=== PATIENT | male | born 1940 | race Caucasian/White ===

== ENCOUNTER 2016-07-20 11:53 | Emergency (ER) | payer MEDICARE, MEDICAID ==
[~2016-07-20] VITALS: Ht 175.3 cm; Wt 90.0 kg
[~2016-07-20 11:53] MED LIST: ACET1TAB12 PO; AMLO2.5T45 PO; ASPI-1035 PO; FINA5TAB11 PO; IBUP-1510 PO; LOSA50TA20 PO; METF500T4 PO; METO50TA5 PO; OMEP20TA80 PO; ROSU20TA PO; TERA2CAP53 PO
[2016-07-20 12:39] LABS: BASOPHILS % 0.5 % (0.0-2.0); HEMOGLOBIN. 11.4 g/dL (14.0-18.0); LYMPHOCYTES % 26.8 % (20.0-50.0); MEAN CORPUSCULAR HEMOGLOBIN 29.1 pg (28.0-32.0); MEAN CORPUSCULAR HGB CONC 33.6 g/dL (31.0-37.0); MEAN CORPUSCULAR VOLUME 86.7 fL (80.0-94.0); MEAN PLATELET VOLUME 8.1 fl (7.4-10.4); NEUTROPHILS % 62.7 % (40.0-76.0); PLATELET 156 x1000/uL (130-400); RED BLOOD CELL COUNT 3.92 mill/uL (4.7-6.1); RED CELL DISTRIBUTION WIDTH 14.8 % (11.6-14.6)
[2016-07-20 12:46] LABS: INR 1.2; PROTHROMBIN TIME 12.1 sec
[2016-07-20 12:49] LABS: ALBUMIN 3.6 g/dL (3.4-5.0); ANION GAP 15; CALCIUM 8.3 mg/dL (8.5-10.1); CARBON DIOXIDE 28 mEq/L (21-32); CHLORIDE 100 mEq/L (98-107); INDEX HEMOLYSI 1 (1-3); INDEX ICTERIC 1 (1-4); INDEX LIPEMIC 1 (1-3); UREA NITROGEN BLOOD 10 mg/dL (7-21)
[2016-07-20 12:53] LABS: ALANINE AMINOTRANSFERASE 25 IU/L (13-61); eGFR > 60 mL/min (>60)
[2016-07-20 15:49] VITALS: BP 125/70
== END 2016-07-20 16:01 | disposition home or self-care (01) ==
LOC: ER 12:12
DX: I95.9 Hypotension, unspecified (principal); R42 Dizziness and giddiness; E11.9 Type 2 diabetes mellitus without complications; R79.1 Abnormal coagulation profile; I10 Essential (primary) hypertension; Z95.0 Presence of cardiac pacemaker; Z79.82 Long term (current) use of aspirin
CPT/HCPCS: 36415; 71010; 80053; 85025; 85610; 93005; 99285

== ENCOUNTER 2018-11-26 23:08 | Inpatient (IN) | payer OTHER, MEDICAID ==
[~2018-11-26] VITALS: Ht 165.1 cm; Wt 79.5 kg
[~2018-11-26 23:08] MED LIST changes: -ASPI-1035 PO; +ASPI-1393 PO; -IBUP-1510 PO; +IBUP-2030 PO; -LOSA50TA20 PO; +LOSA50TA41 PO; +METF-414 PO; -METF500T4 PO; +METO-539 PO; -METO50TA5 PO; +OMEP20TA2 PO; -OMEP20TA80 PO; -ROSU20TA PO; +ROSU20TA2 PO; +TERA2CAP4 PO; -TERA2CAP53 PO
[2018-11-26] MEDS ORDERED: KETOROLAC 30MG/ML VIAL IV STA (23:24)
[2018-11-26 23:48] LABS: BASOPHILS % 0.7 % (0.0-2.0); EOSINOPHILS % 1.7 % (0.0-5.0); HEMATOCRIT. 35.6 % (42.0-52.0); HEMOGLOBIN. 12.2 g/dL (14.0-18.0); LYMPHOCYTES % 22.4 % (20.0-50.0); MEAN CORPUSCULAR HEMOGLOBIN 29.6 pg (28.0-32.0); MEAN CORPUSCULAR VOLUME 86.3 fL (80.0-94.0); MEAN PLATELET VOLUME 8.5 fl (7.4-10.4); MONOCYTES % 8.2 % (2.0-8.0); PLATELET 172 x1000/uL (130-400); RED BLOOD CELL COUNT 4.12 mill/uL (4.7-6.1); RED CELL DISTRIBUTION WIDTH 16.7 % (11.6-14.6)
[2018-11-26 23:49] LABS: CHLORIDE 93 mEq/L (98-107)
[2018-11-27 00:16] LABS: CLARITY URINE CLEAR (CLEAR); COLOR URINE YELLOW (YELLOW); KETONES URINE NEGATIVE (NEGATIVE); LEUKOCYTE ESTERASE URINE NEGATIVE (NEGATIVE); NITRITE URINE NEGATIVE (NEGATIVE); OCCULT BLOOD URINE TRACE (NEGATIVE); PROTEIN URINE NEGATIVE (NEGATIVE); SPECIFIC GRAVITY URINE 1.015 (1.005-1.030); UROBILINOGEN URINE 0.2 E.U./dL (0.2-1.0)
[2018-11-27] MEDS ORDERED: MORPHINE SULFATE 2 MG/ML CPJ (NOT FOR IM USE) IV ONE (06:15)
[2018-11-27 08:15] VITALS: BP 150/82
[2018-11-27 08:16] VITALS: BP 150/72
[2018-11-27] MEDS ORDERED: MORPHINE SULFATE 2 MG/ML CPJ (NOT FOR IM USE) IV PRN (10:00)
[2018-11-27] MEDS ORDERED: KETOROLAC 30MG/ML VIAL IV PRN (10:00)
[2018-11-27] MEDS ORDERED: ACETAMINOPHEN 325MG TABLET PO PRN (10:00)
[2018-11-27] MEDS ORDERED: ONDANSETRON HCL 4MG/2ML INJ IV PRN (10:00)
[2018-11-27] MEDS ORDERED: LACTULOSE 20G/30ML UDC PO PRN (10:00)
[2018-11-27] MEDS ORDERED: DEXTROSE 50% WATER 50ML SYRINGE IV PRN (10:45)
[2018-11-27] MEDS: DOCUSATE SODIUM 250MG CAPSULE PO SCH (10:58)
[2018-11-27] MEDS: TAMSULOSIN HCL 0.4MG SR CAPSULE PO SCH (10:58)
[2018-11-27 12:00] VITALS: BP 123/84
[2018-11-27] MEDS ORDERED: SORBITOL 70% SOLN 30ML PO NR (12:00)
[2018-11-27] MEDS: BLOOD SUGAR DIAGNOSTIC STRIP TEST SCH ×3 (12:05→20:25)
[2018-11-27] MEDS: INSULIN LISPRO 100 UNITS/ML SUBCUT SCH ×3 (12:07→21:00)
[2018-11-27 16:00] VITALS: BP 109/58
[2018-11-27] MEDS: FINASTERIDE 5MG TABLET PO SCH (17:32)
[2018-11-27 20:00] VITALS: BP 111/63
[2018-11-27 22:49] LABS: HEPATITIS B SURFACE ANTIGEN NEGATIVE
[2018-11-27 23:17] LABS: HEPATITIS A AB IGM NEGATIVE (NEGATIVE)
[2018-11-28] VITALS: BP 98/54
[2018-11-28 04:00] VITALS: BP 94/58
[2018-11-28 06:04] LABS: CHLORIDE 100 mEq/L (98-107)
[2018-11-28] MEDS: BLOOD SUGAR DIAGNOSTIC STRIP TEST SCH ×3 (06:13→17:20)
[2018-11-28 06:47] LABS: BASOPHILS % 0.7 % (0.0-2.0); EOSINOPHILS % 4.1 % (0.0-5.0); HEMATOCRIT. 34.1 % (42.0-52.0); HEMOGLOBIN. 11.9 g/dL (14.0-18.0); LYMPHOCYTES % 39.1 % (20.0-50.0); MEAN CORPUSCULAR HEMOGLOBIN 30.3 pg (28.0-32.0); MEAN CORPUSCULAR VOLUME 86.7 fL (80.0-94.0); MEAN PLATELET VOLUME 8.9 fl (7.4-10.4); MONOCYTES % 9.2 % (2.0-8.0); NEUTROPHILS % 46.9 % (40.0-76.0); PLATELET 168 x1000/uL (130-400); RED BLOOD CELL COUNT 3.93 mill/uL (4.7-6.1); RED CELL DISTRIBUTION WIDTH 16.7 % (11.6-14.6)
[2018-11-28] MEDS: INSULIN LISPRO 100 UNITS/ML SUBCUT SCH ×3 (07:50→17:39)
[2018-11-28 08:00] VITALS: BP 110/54
[2018-11-28] MEDS: TAMSULOSIN HCL 0.4MG SR CAPSULE PO SCH (08:45)
[2018-11-28] MEDS: FINASTERIDE 5MG TABLET PO SCH (08:45)
[2018-11-28] MEDS: DOCUSATE SODIUM 250MG CAPSULE PO SCH (08:46)
[2018-11-28] MEDS ORDERED: ENOXAPARIN 40MG/0.4ML SYR SUBCUT SCH (09:00)
[2018-11-28] MEDS ORDERED: ASPIRIN 81MG TABLET PO SCH (09:00)
[2018-11-28 12:00] VITALS: BP 101/56
[2018-11-28 16:00] VITALS: BP 105/64
[2018-11-28] MEDS ORDERED: ATORVASTATIN CALCIUM 40MG TABLET PO SCH (21:00)
== END 2018-11-28 18:16 | disposition home or self-care (01) | DRG 726 ==
LOC: ER 23:08 → 6WST 11-27 05:14 → EDBEDREQ 11-27 05:29 → EDBEDREQTM 11-27 05:29 → ENRESERV 11-27 07:20
PROVIDERS: ADMIT Internal Medicine; ATTEND Internal Medicine
DX: N40.1 Benign prostatic hyperplasia with lower urinary tract symptoms (principal); E87.1 Hypo-osmolality and hyponatremia; K59.00 Constipation, unspecified; D64.9 Anemia, unspecified; E11.9 Type 2 diabetes mellitus without complications; E66.9 Obesity, unspecified; E87.6 Hypokalemia; I11.0 Hypertensive heart disease with heart failure; I50.9 Heart failure, unspecified; K80.20 Calculus of gallbladder without cholecystitis without obstruction; K74.60 Unspecified cirrhosis of liver; R33.8 Other retention of urine; Z86.73 Personal history of transient ischemic attack (TIA), and cerebral infarction without residual deficits; Z95.0 Presence of cardiac pacemaker; Z79.1 Long term (current) use of non-steroidal anti-inflammatories (NSAID); Z79.899 Other long term (current) drug therapy; Z79.84 Long term (current) use of oral hypoglycemic drugs; Z68.29 Body mass index [BMI] 29.0-29.9, adult
CPT/HCPCS: 36415; 71045; 74176; 80048; 81003; 82962; 83880; 84484; 86705; 86709; 86803; 87340; 93005; 93306; 96374; 96375; 99285; J1650; J1885; J2270

== ENCOUNTER 2019-03-15 09:16 | Inpatient (IN) | payer OTHER, MEDICAID ==
[~2019-03-15] VITALS: Ht 165.1 cm; Wt 84.4 kg
[~2019-03-15 09:16] MED LIST changes: -AMLO2.5T45 PO; -METO-539 PO
[2019-03-15] MEDS ORDERED: SODIUM CHLORIDE 0.9% 500 ML IV ONE (10:05)
[2019-03-15 11:02] LABS: BASOPHILS % 0.9 % (0.0-2.0); EOSINOPHILS % 1.4 % (0.0-5.0); HEMATOCRIT. 39.9 % (42.0-52.0); HEMOGLOBIN. 13.5 g/dL (14.0-18.0); LYMPHOCYTES % 25.7 % (20.0-50.0); MEAN CORPUSCULAR HEMOGLOBIN 30.6 pg (28.0-32.0); MEAN CORPUSCULAR VOLUME 90.1 fL (80.0-94.0); MEAN PLATELET VOLUME 8.3 fl (7.4-10.4); MONOCYTES % 13.5 % (2.0-8.0); NEUTROPHILS % 58.5 % (40.0-76.0); PLATELET 160 x1000/uL (130-400); RED BLOOD CELL COUNT 4.42 mill/uL (4.7-6.1); RED CELL DISTRIBUTION WIDTH 14.9 % (11.6-14.6)
[2019-03-15 11:07] LABS: CHLORIDE 97 mEq/L (98-107)
[2019-03-15 11:23] LABS: CLARITY URINE CLEAR (CLEAR); COLOR URINE YELLOW (YELLOW); KETONES URINE NEGATIVE (NEGATIVE); LEUKOCYTE ESTERASE URINE NEGATIVE (NEGATIVE); NITRITE URINE NEGATIVE (NEGATIVE); OCCULT BLOOD URINE 1+ (NEGATIVE); PROTEIN URINE NEGATIVE (NEGATIVE); SPECIFIC GRAVITY URINE 1.012 (1.005-1.030); UROBILINOGEN URINE 0.2 E.U./dL (0.2-1.0)
[2019-03-15] MEDS ORDERED: ACETAMINOPHEN 325MG TABLET PO NR (13:30)
[2019-03-15] MEDS ORDERED: ONDANSETRON HCL 4MG/2ML INJ IV ONE (14:15)
[2019-03-15] MEDS ORDERED: ONDANSETRON HCL 4MG/2ML INJ IV PRN (16:30)
[2019-03-15] MEDS ORDERED: ACETAMINOPHEN 325MG TABLET PO PRN (16:30)
[2019-03-15] MEDS ORDERED: CLONIDINE 0.1MG TABLET PO PRN (16:30)
[2019-03-15] MEDS ORDERED: BISACODYL 5MG TABLET PO PRN (16:30)
[2019-03-15] MEDS ORDERED: PIPERACILLIN/TAZOBACTAM 3.375 G in DEXT 5% WATER 100 ML IV NR (17:00)
[2019-03-15] MEDS ORDERED: DEXTROSE 50% WATER 50ML SYRINGE IV PRN (17:00)
[2019-03-15 18:00] VITALS: BP 110/69
[2019-03-15] MEDS: BLOOD SUGAR DIAGNOSTIC STRIP TEST SCH ×2 (18:00→20:56)
[2019-03-15] MEDS: INSULIN LISPRO 100 UNITS/ML SUBCUT SCH ×2 (18:10→20:55)
[2019-03-15 20:00] VITALS: BP 107/50
[2019-03-15] MEDS: SODIUM CHLORIDE 0.9% 1,000 ML IV SCH (20:08)
[2019-03-15] MEDS: AMLODIPINE 5MG TABLET PO SCH (20:55)
[2019-03-15] MEDS: PIPERACILLIN/TAZOBACTAM 3.375 G in DEXT 5% WATER 100 ML IV SCH (23:55)
[2019-03-16] VITALS: BP_SYST 87; BP_SYST 92; BP_SYST 93; BP_DIAS 45; BP_DIAS 46
[2019-03-16 04:00] VITALS: BP 117/64
[2019-03-16 08:00] VITALS: BP_SYST 102; BP_SYST 112; BP_SYST 120; BP_DIAS 55; BP_DIAS 63
[2019-03-16 08:07] LABS: BASOPHILS % 0.3 % (0.0-2.0); EOSINOPHILS % 0.2 % (0.0-5.0); HEMATOCRIT. 35.3 % (42.0-52.0); LYMPHOCYTES % 26.9 % (20.0-50.0); MEAN CORPUSCULAR HEMOGLOBIN 30.6 pg (28.0-32.0); MEAN CORPUSCULAR VOLUME 89.8 fL (80.0-94.0); MEAN PLATELET VOLUME 8.9 fl (7.4-10.4); MONOCYTES % 8.5 % (2.0-8.0); NEUTROPHILS % 64.1 % (40.0-76.0); PLATELET 141 x1000/uL (130-400); RED BLOOD CELL COUNT 3.93 mill/uL (4.7-6.1); RED CELL DISTRIBUTION WIDTH 14.6 % (11.6-14.6)
[2019-03-16] MEDS: PIPERACILLIN/TAZOBACTAM 3.375 G in DEXT 5% WATER 100 ML IV SCH ×4 (08:13→23:24)
[2019-03-16] MEDS: DOCUSATE SODIUM 250MG CAPSULE PO SCH (08:14)
[2019-03-16] MEDS: TAMSULOSIN HCL 0.4MG SR CAPSULE PO SCH (08:14)
[2019-03-16] MEDS: AMLODIPINE 5MG TABLET PO SCH (08:14)
[2019-03-16 08:53] LABS: CHLORIDE 98 mEq/L (98-107)
[2019-03-16] MEDS: SODIUM CHLORIDE 0.9% 1,000 ML IV SCH ×2 (11:50→23:33)
[2019-03-16 12:00] VITALS: BP_SYST 106; BP_SYST 115; BP_SYST 126; BP_DIAS 55; BP_DIAS 56; BP_DIAS 63
[2019-03-16] MEDS: BLOOD SUGAR DIAGNOSTIC STRIP TEST SCH ×4 (12:40→21:00)
[2019-03-16] MEDS: INSULIN LISPRO 100 UNITS/ML SUBCUT SCH ×4 (13:00→21:00)
[2019-03-16 16:00] VITALS: BP_SYST 102; BP_SYST 123; BP_DIAS 52; BP_DIAS 55; BP_DIAS 63
[2019-03-16 20:00] VITALS: BP_SYST 107; BP_SYST 96; BP_DIAS 42; BP_DIAS 43
[2019-03-17] VITALS: BP 106/41
[2019-03-17 04:00] VITALS: BP 99/51
[2019-03-17] MEDS: PIPERACILLIN/TAZOBACTAM 3.375 G in DEXT 5% WATER 100 ML IV SCH ×2 (05:05→11:58)
[2019-03-17 06:15] LABS: BASOPHILS % 0.4 % (0.0-2.0); EOSINOPHILS % 0.6 % (0.0-5.0); HEMATOCRIT. 33.5 % (42.0-52.0); HEMOGLOBIN. 11.9 g/dL (14.0-18.0); MEAN CORPUSCULAR HEMOGLOBIN 31.5 pg (28.0-32.0); MEAN CORPUSCULAR VOLUME 88.7 fL (80.0-94.0); MEAN PLATELET VOLUME 8.7 fl (7.4-10.4); PLATELET 128 x1000/uL (130-400); RED BLOOD CELL COUNT 3.78 mill/uL (4.7-6.1); RED CELL DISTRIBUTION WIDTH 14.7 % (11.6-14.6)
[2019-03-17 06:43] LABS: CHLORIDE 105 mEq/L (98-107)
[2019-03-17] MEDS: INSULIN LISPRO 100 UNITS/ML SUBCUT SCH ×2 (07:31→13:10)
[2019-03-17] MEDS: BLOOD SUGAR DIAGNOSTIC STRIP TEST SCH ×2 (07:31→12:40)
[2019-03-17 08:00] VITALS: BP 104/58
[2019-03-17] MEDS: DOCUSATE SODIUM 250MG CAPSULE PO SCH (10:17)
[2019-03-17] MEDS: TAMSULOSIN HCL 0.4MG SR CAPSULE PO SCH (10:18)
[2019-03-17] MEDS: SODIUM CHLORIDE 0.9% 1,000 ML IV SCH (10:38)
[2019-03-17 15:48] VITALS: BP 129/68
[2019-03-18] MEDS ORDERED: ENOXAPARIN 40MG/0.4ML SYR SUBCUT SCH (09:00)
== END 2019-03-17 17:33 | disposition home or self-care (01) | DRG 872 ==
LOC: ER 09:16 → 7WST 14:25 → EDBEDREQ 14:28 → EDBEDREQTM 14:28 → ENRESERV 16:49
PROVIDERS: ADMIT Internal Medicine; ATTEND Internal Medicine
DX: A41.9 Sepsis, unspecified organism (principal); I50.32 Chronic diastolic (congestive) heart failure; E87.1 Hypo-osmolality and hyponatremia; E11.9 Type 2 diabetes mellitus without complications; D64.9 Anemia, unspecified; G90.8 Other disorders of autonomic nervous system; K74.60 Unspecified cirrhosis of liver; I11.0 Hypertensive heart disease with heart failure; E87.8 Other disorders of electrolyte and fluid balance, not elsewhere classified; N40.0 Benign prostatic hyperplasia without lower urinary tract symptoms; B34.9 Viral infection, unspecified; Z86.73 Personal history of transient ischemic attack (TIA), and cerebral infarction without residual deficits; Z95.0 Presence of cardiac pacemaker; Z79.899 Other long term (current) drug therapy; Z79.82 Long term (current) use of aspirin; Z79.84 Long term (current) use of oral hypoglycemic drugs
CPT/HCPCS: 36415; 71045; 80048; 81003; 82962; 83880; 84145; 84484; 87804; 93005; 96361; 96365; 96375; 97162; 99285; J2405; J2543; J7030; J7060

== ENCOUNTER 2022-03-16 16:00 | Inpatient (IN) | payer OTHER, MEDICAID ==
[~2022-03-16] VITALS: Ht 172.7 cm; Wt 84.8 kg
[~2022-03-16 16:00] MED LIST changes: -ASPI-1393 PO; +ASPI-1497 PO; -LOSA50TA41 PO; -OMEP20TA2 PO; +OMEP20TA23 PO
[2022-03-16] MEDS ORDERED: SODIUM CHLORIDE 0.9% 1,000 ML IV ONE (16:45)
[2022-03-16 18:13] LABS: BASOPHILS % 0.5 % (0.0-2.0); EOSINOPHILS % 2.1 % (0.0-5.0); HEMATOCRIT. 35.2 % (42.0-52.0); HEMOGLOBIN. 11.8 g/dL (14.0-18.0); LYMPHOCYTES % 29.1 % (20.0-50.0); MEAN CORPUSCULAR HEMOGLOBIN 29.8 pg (28.0-32.0); MEAN CORPUSCULAR VOLUME 88.9 fL (80.0-94.0); MEAN PLATELET VOLUME 8.7 fl (7.4-10.4); NEUTROPHILS % 58.3 % (40.0-76.0); PLATELET 184 x1000/uL (130-400); RED BLOOD CELL COUNT 3.96 mill/uL (4.7-6.1); RED CELL DISTRIBUTION WIDTH 14.1 % (11.6-14.6)
[2022-03-16 18:16] LABS: CHLORIDE 102 mEq/L (98-107)
[2022-03-16 18:20] LABS: INR 1.1; PARTIAL THROMBOPLASTIN TIME 30.3 sec (23.4-31.0); PROTHROMBIN TIME 11.7 sec (9.6-11.0)
[2022-03-16] MEDS ORDERED: SODIUM CHLORIDE 0.9% 1000ML BAG (SEPSIS BOLUS) IV ONE (18:30)
[2022-03-16] MEDS ORDERED: CEFTRIAXONE 1 G PREMIX 50 ML IV ONE (18:30)
[2022-03-16] MEDS ORDERED: AZITHROMYCIN 500MG/250ML 250 ML IV ONE (18:30)
[2022-03-16] MEDS ORDERED: OSELTAMIVIR 75MG CAPSULE PO ONE (18:45)
[2022-03-16 19:21] LABS: CLARITY URINE CLEAR (CLEAR); COLOR URINE YELLOW (YELLOW); KETONES URINE NEGATIVE (NEGATIVE); LEUKOCYTE ESTERASE URINE NEGATIVE (NEGATIVE); NITRITE URINE NEGATIVE (NEGATIVE); OCCULT BLOOD URINE NEGATIVE (NEGATIVE); PH URINE 6.5 (4.5-8.0); PROTEIN URINE NEGATIVE (NEGATIVE); SPECIFIC GRAVITY URINE 1.007 (1.005-1.030); UROBILINOGEN URINE 0.2 E.U./dL (0.2-1.0)
[2022-03-16] MEDS ORDERED: FUROSEMIDE 20MG/2ML VIAL IVP ONE (19:30)
[2022-03-16] MEDS ORDERED: ASPIRIN 81MG TABLET PO ONE (19:30)
[2022-03-16 23:30] VITALS: BP 158/74
[2022-03-16] MEDS ORDERED: CLONIDINE 0.1MG TABLET PO PRN (23:30)
[2022-03-16] MEDS ORDERED: IPRATROPIUM/ALBUTEROL 0.5-3(2.5)MG/3ML NEB NEB PRN (23:30)
[2022-03-16] MEDS ORDERED: HYDROCODONE/ACETAMINOPHEN 5/325MG TABLET PO PRN (23:30)
[2022-03-16] MEDS ORDERED: ACETAMINOPHEN 325MG TABLET PO PRN (23:30)
[2022-03-16] MEDS ORDERED: ONDANSETRON HCL 4MG/2ML INJ IV PRN (23:30)
[2022-03-16] MEDS ORDERED: DOCUSATE SODIUM 100MG CAPSULE PO PRN (23:30)
[2022-03-16] MEDS ORDERED: MAGNESIUM/ALUMINUM HYDROXIDE/SIMETHICONE 30ML UDC PO PRN (23:30)
[2022-03-17] MEDS ORDERED: DEXTROSE 50% WATER 50ML SYRINGE IV PRN (00:15)
[2022-03-17] MEDS ORDERED: SERT25TA PO (01:09)
[2022-03-17] MEDS ORDERED: LINA145C PO (01:09)
[2022-03-17] MEDS ORDERED: AMLO2.5T45 PO (01:09)
[2022-03-17] MEDS ORDERED: TAMS-11 PO (01:09)
[2022-03-17] MEDS ORDERED: LOSA25TA26 PO (01:09)
[2022-03-17] MEDS ORDERED: *PATIENT'S OWN MEDICATION STORAGE XX SCH (01:30)
[2022-03-17 01:55] LABS: *AMPHETAMINES SCREEN URINE NEGATIVE (NEGATIVE); *BARBITURATES SCREEN URINE NEGATIVE (NEGATIVE); *BENZODIAZEPINES SCREEN URINE NEGATIVE (NEGATIVE); *COCAINE SCREEN URINE NEGATIVE (NEGATIVE); CANNABINOID URINE SCREEN NEGATIVE (NEGATIVE); METHADONE URINE SCREEN NEGATIVE (NEGATIVE); OPIATES URINE SCREEN NEGATIVE (NEGATIVE); PHENCYCLIDINE URINE SCREEN NEGATIVE (NEGATIVE)
[2022-03-17 04:00] VITALS: BP 151/70
[2022-03-17] MEDS: BLOOD SUGAR DIAGNOSTIC STRIP TEST SCH ×4 (06:17→20:32)
[2022-03-17] MEDS: INSULIN LISPRO 100 UNITS/ML SUBCUT SCH ×4 (06:18→20:32)
[2022-03-17 07:14] LABS: BASOPHILS % 0.6 % (0.0-2.0); EOSINOPHILS % 2.7 % (0.0-5.0); HEMATOCRIT. 34.5 % (42.0-52.0); HEMOGLOBIN. 11.6 g/dL (14.0-18.0); LYMPHOCYTES % 31.8 % (20.0-50.0); MEAN CORPUSCULAR HEMOGLOBIN 29.4 pg (28.0-32.0); MEAN CORPUSCULAR VOLUME 87.6 fL (80.0-94.0); MONOCYTES % 10.2 % (2.0-8.0); NEUTROPHILS % 54.7 % (40.0-76.0); PLATELET 196 x1000/uL (130-400); RED BLOOD CELL COUNT 3.94 mill/uL (4.7-6.1)
[2022-03-17 07:56] LABS: CREATINE KINASE 75 IU/L (39-308); CREATINE KINASE MB FRACTION < 1.0 ng/mL (0.5-3.6)
[2022-03-17 08:23] VITALS: BP 139/67
[2022-03-17] MEDS: ASPIRIN 81MG EC TABLET PO SCH (09:03)
[2022-03-17 10:04] LABS: CHLORIDE 103 mEq/L (98-107)
[2022-03-17 10:27] LABS: HDL CHOLESTEROL 32 mg/dL (40-59); LDL CHOLESTEROL 62 mg/dL (5-100)
[2022-03-17 12:04] VITALS: BP 119/65
[2022-03-17 12:05] VITALS: BP_SYST 130; BP_SYST 132; BP_DIAS 68; BP_DIAS 75
[2022-03-17 16:40] VITALS: BP 159/70
[2022-03-17] MEDS ORDERED: NALOXONE HCL 0.4MG/ML VIAL IV PRN (18:00)
[2022-03-17 18:16] LABS: CREATINE KINASE 67 IU/L (39-308); CREATINE KINASE MB FRACTION < 1.0 ng/mL (0.5-3.6)
[2022-03-17 20:00] VITALS: BP 139/69
[2022-03-18 04:00] VITALS: BP 143/69
[2022-03-18 06:31] LABS: BASOPHILS % 0.5 % (0.0-2.0); EOSINOPHILS % 3.5 % (0.0-5.0); HEMATOCRIT. 32.6 % (42.0-52.0); HEMOGLOBIN. 11.2 g/dL (14.0-18.0); LYMPHOCYTES % 44.2 % (20.0-50.0); MEAN CORPUSCULAR HEMOGLOBIN 30.1 pg (28.0-32.0); MEAN CORPUSCULAR VOLUME 87.7 fL (80.0-94.0); MEAN PLATELET VOLUME 8.8 fl (7.4-10.4); MONOCYTES % 10.2 % (2.0-8.0); NEUTROPHILS % 41.6 % (40.0-76.0); PLATELET 179 x1000/uL (130-400); RED BLOOD CELL COUNT 3.72 mill/uL (4.7-6.1)
[2022-03-18] MEDS: INSULIN LISPRO 100 UNITS/ML SUBCUT SCH ×4 (06:33→21:44)
[2022-03-18] MEDS: BLOOD SUGAR DIAGNOSTIC STRIP TEST SCH ×4 (06:33→21:44)
[2022-03-18 07:16] LABS: CHLORIDE 101 mEq/L (98-107)
[2022-03-18 08:00] VITALS: BP 158/72
[2022-03-18] MEDS: ASPIRIN 81MG EC TABLET PO SCH (09:16)
[2022-03-18] MEDS: LOSARTAN POTASSIUM 25 MG TABLET PO SCH (09:45)
[2022-03-18] MEDS: AMLODIPINE 2.5MG TABLET PO SCH (09:45)
[2022-03-18 12:00] VITALS: BP 109/67
[2022-03-18 16:00] VITALS: BP 119/54
[2022-03-18 20:01] VITALS: BP 135/57
[2022-03-18] MEDS ORDERED: ATORVASTATIN CALCIUM 10MG TABLET PO SCH (21:00)
[2022-03-19 00:07] VITALS: BP 128/57
[2022-03-19 04:05] VITALS: BP 125/59
[2022-03-19] MEDS: BLOOD SUGAR DIAGNOSTIC STRIP TEST SCH ×2 (06:31→12:48)
[2022-03-19] MEDS: INSULIN LISPRO 100 UNITS/ML SUBCUT SCH ×2 (06:31→12:40)
[2022-03-19 07:29] LABS: BASOPHILS % 0.8 % (0.0-2.0); EOSINOPHILS % 3.9 % (0.0-5.0); HEMATOCRIT. 34.6 % (42.0-52.0); HEMOGLOBIN. 11.6 g/dL (14.0-18.0); LYMPHOCYTES % 38.2 % (20.0-50.0); MEAN CORPUSCULAR HEMOGLOBIN 29.7 pg (28.0-32.0); MEAN CORPUSCULAR VOLUME 88.4 fL (80.0-94.0); MEAN PLATELET VOLUME 8.5 fl (7.4-10.4); MONOCYTES % 9.5 % (2.0-8.0); NEUTROPHILS % 47.6 % (40.0-76.0); PLATELET 187 x1000/uL (130-400); RED BLOOD CELL COUNT 3.91 mill/uL (4.7-6.1); RED CELL DISTRIBUTION WIDTH 14.6 % (11.6-14.6)
[2022-03-19 07:55] LABS: CHLORIDE 104 mEq/L (98-107)
[2022-03-19 08:00] VITALS: BP 146/64
[2022-03-19] MEDS: LOSARTAN POTASSIUM 25 MG TABLET PO SCH (09:09)
[2022-03-19] MEDS: ASPIRIN 81MG EC TABLET PO SCH (09:09)
[2022-03-19] MEDS: AMLODIPINE 2.5MG TABLET PO SCH (09:10)
[2022-03-19 12:00] VITALS: BP 145/109
[2022-03-19 15:22] VITALS: BP 145/109
== END 2022-03-19 18:41 | disposition home or self-care (01) | DRG 74 ==
LOC: ER 16:00 → 8WST 19:34 → ENRESERV 23:03
PROVIDERS: ADMIT Internal Medicine; ATTEND Internal Medicine
DX: G90.8 Other disorders of autonomic nervous system (principal); I11.0 Hypertensive heart disease with heart failure; I50.9 Heart failure, unspecified; K74.60 Unspecified cirrhosis of liver; Z20.822 Contact with and (suspected) exposure to COVID-19; I25.10 Atherosclerotic heart disease of native coronary artery without angina pectoris; E11.9 Type 2 diabetes mellitus without complications; I49.5 Sick sinus syndrome; E78.5 Hyperlipidemia, unspecified; I34.0 Nonrheumatic mitral (valve) insufficiency; N40.0 Benign prostatic hyperplasia without lower urinary tract symptoms; Z79.4 Long term (current) use of insulin; Z79.899 Other long term (current) drug therapy; Z86.73 Personal history of transient ischemic attack (TIA), and cerebral infarction without residual deficits; Z95.0 Presence of cardiac pacemaker
CPT/HCPCS: 36415; 71045; 80048; 80053; 80061; 80305; 81003; 82550; 82553; 82962; 83036; 83605; 83880; 84443; 84484; 85025; 86850; 86900; 87426; 87804; 93005; 93306; 99285; C9803; J0456; J0696; J1815; J1940; J7030

== ENCOUNTER 2024-07-21 15:02 | Emergency (ER) | payer OTHER, MEDICAID ==
[~2024-07-21] VITALS: Ht 172.7 cm; Wt 91.0 kg
[~2024-07-21 15:02] MED LIST changes: +AMLO2.5T45 PO; +ASPI-1497 MT; +CLOP-31 MT; +LEVO750T68 MT; +LINA145C PO; +LIP40 MT; +LOSA25TA26 PO; -ROSU20TA2 PO; +SERT25TA PO; +TAMS-11 PO
[2024-07-21 15:04] VITALS: O2SAT 96
[2024-07-21 15:16] VITALS: BP 145/96; PULSE 84; RESP 18; TEMP 36.8; O2SAT 95
[2024-07-21 18:50] LABS: CLARITY URINE TURBID (CLEAR); COLOR URINE RED (YELLOW); GLUCOSE URINE NEGATIVE (NEGATIVE); KETONES URINE NEGATIVE (NEGATIVE); LEUKOCYTE ESTERASE URINE 2+ (NEGATIVE); NITRITE URINE POSITIVE (NEGATIVE); OCCULT BLOOD URINE 3+ (NEGATIVE); PROTEIN URINE 3+ (NEGATIVE); SPECIFIC GRAVITY URINE 1.022 (1.005-1.030)
[2024-07-21 19:47] LABS: BACTERIA URINE 1+; RBC URINE TNTC /hpf (0-2); SQUAMOUS EPITHELIAL CELL URINE 1+ /lpf (RARE/1+); WBC URINE 15-25 /hpf (0-2)
[2024-07-21] MEDS ORDERED: CEFP100T8 MT (22:24)
== END 2024-07-21 22:52 | disposition home or self-care (01) ==
LOC: ER 15:02
DX: N39.0 Urinary tract infection, site not specified (principal); E11.9 Type 2 diabetes mellitus without complications; E78.00 Pure hypercholesterolemia, unspecified; I10 Essential (primary) hypertension; Z79.02 Long term (current) use of antithrombotics/antiplatelets; Z79.82 Long term (current) use of aspirin; Z79.84 Long term (current) use of oral hypoglycemic drugs; Z79.899 Other long term (current) drug therapy; Z86.73 Personal history of transient ischemic attack (TIA), and cerebral infarction without residual deficits; Z95.0 Presence of cardiac pacemaker
CPT/HCPCS: 51702; 81003; 99284